=== PATIENT | male | born 1975 | race Hispanic/Latino ===

== ENCOUNTER 2021-10-16 10:32 | Emergency (ER) | payer SELFPAY ==
[2021-10-16 11:12] VITALS: BP 153/98; PULSE 112; RESP 20; TEMP 36.7; O2SAT 100; BMI 28.8
[2021-10-16 11:39] LABS: Add Manual Diff / Slide Review NO; Basophils Absolute Auto 100 /uL (0-100); Basophils Percent Auto 0.8 % (0-2); Eosinophils Absolute Auto 0 /uL (0-450); Eosinophils Percent Auto 0.5 % (2-4); Hematocrit 44.4 % (41-53); Hemoglobin 15.5 g/dL (13.5-17.5); Lymphocytes Absolute Auto 1900 /uL (1100-4500); Lymphocytes Percent Auto 19.3 % (25-40); Mean Corpuscular HGB Conc 34.9 % (30-36); Mean Corpuscular Hemoglobin 31.9 PG (26-34); Mean Corpuscular Volume 91.3 fL (80-100); Monocytes Absolute Auto 700 /uL (0-900); Monocytes Percent Auto 7.4 % (3-14); Neutrophils Absolute Auto 6900 /uL (1500-7000); Platelet Count 321 X10^3/uL (150-400); Red Blood Cell Count 4.86 X10^6/uL (4.5-5.9); Red Cell Distribution Width 12.8 % (11.6-14.8); White Blood Cell Count 9.6 X10^3/uL (4.5-11.0)
[2021-10-16] MEDS: KETOROLAC 30 MG/ML VIAL IV (11:42)
[2021-10-16] MEDS: SODIUM CHLORIDE 0.9% 1,000 ML 1000 ML IV (11:42)
[2021-10-16 11:51] LABS: Alanine Aminotransferase 50 IU/L (<50); Albumin 4.7 g/dL (3.5-5.0); Albumin Globulin Ratio 1.3 (1.0-2.8); Alkaline Phosphatase 100 U/L (38-126); Aspartate Aminotransferase 55 IU/L (17-59); Bilirubin Total 0.3 mg/dL (0.2-1.3); Blood Urea Nitrogen 9 mg/dL (9-20); Calcium 8.9 mg/dL (8.4-10.2); Carbon Dioxide 24 mmol/L (22-32); Chloride 104 mmol/L (98-107); Estimated Glomerular Filt Rate > 60.0 mL/min (>60); Globulin 3.7 g/dL (1.7-4.1); Glucose 106 mg/dL (70-100); HEMOLYSIS < 15 (0-50); Lipase 51 U/L (23-300); Potassium 3.8 mmol/L (3.4-5.1); Sodium 138 mmol/L (137-145); Total Protein 8.4 g/dL (6.3-8.2)
--- NOTE | 2021-10-16 13:43 | DI.CT.S_ITS ---
PROCEDURE: CT ABDOMEN PELVIS W CON INDICATIONS: Abdominal, flank pain TECHNIQUE: After the administration of intravenous contrast, axial sections acquired from the lung bases to the pubic symphysis. Coronal and sagittal reformats were performed. For radiation dose reduction, the following was used: automated exposure control, adjustment of mA and/or kV according to patient size. COMPARISON: None. FINDINGS: Image quality: Good. There is respiratory motion present.. Lung bases: Unremarkable. Heart: No significant findings. ABDOMEN: Liver: Mild steatosis. No focal mass. Gallbladder: Normal wall thickness. Biliary ducts: Nondilated. Pancreas: Normal. Spleen: Normal size. Adrenal Glands: No nodules. Kidneys and Ureters: Normal enhancement. No hydronephrosis or hydroureter. No calcifications. Stomach and Bowel: Stomach, small bowel loops, and colon are unremarkable. Normal appendix. Peritoneum: No abnormal intraperitoneal fluid. No free air. Ventral Wall: Tiny fat containing umbilical hernia. Abdominal Nodes: No retroperitoneal or mesenteric adenopathy by size criteria. Vessels: Aorta and inferior vena cava are normal in size. PELVIS: Pelvic Organs: Unremarkable. Bladder: Unremarkable. Pelvic Nodes: No enlarged lymph nodes. Miscellaneous: No hernias are seen. Bones: Bilateral subcortical sclerosis and cystic changes along both sacroiliac joints, symmetrically. Bridging osteophytosis of the lower thoracic spine vertebral bodies and sclerosis along the lumbar vertebral body corners. IMPRESSION: 1. No acute intraperitoneal process. 2. Bony changes suggesting ankylosing spondylitis with sacroiliitis. 3. Mild hepatic steatosis. Dictated by: Abimbola Curran M.D. on 10/16/2021 at 14:44 Approved by: Abimbola Curran M.D. on 10/16/2021 at 14:49
[2021-10-16] MEDS: MAG HYDROX/ALUMINUM/SIMETH SUS 20 ML, LIDOCAINE VISCOUS 2% 15 ML PO (14:32)
[2021-10-16] MEDS: FAMOTIDINE 20 MG/2 ML VIAL IV (14:32)
[2021-10-16 14:45] VITALS: BP 152/81; PULSE 77; O2SAT 97
--- NOTE | 2021-10-16 15:44 | ED.ABDPAIN ---
HPI - Abdominal Pain <Fox Barrera PA-C - Last Filed: 10/16/21 16:41> General Chief Complaint: Abdominal Pain Stated Complaint: TORSO PAIN/NOT FEELING GOOD Time Seen by Provider: 10/16/21 12:14 Source: patient Mode of arrival: Ambulatory History of Present Illness HPI narrative: 46-year-old male with no reported past medical history presents to the ED with 1 day of right-sided flank pain that radiates to his right abdomen. Patient states he drank 2 energy drinks this morning, after which his pain started. Patient denies fever, chills, chest pain, shortness of breath, cough, nausea, vomiting, diarrhea, constipation, dysuria, lytes anus, syncope. Patient denies prior history of gallstones, kidney stones. Denies history of abdominal surgeries. Related Data Home Medications Medication Instructions Recorded Confirmed No Known Home Medications 10/16/21 10/16/21 Allergies Allergy/AdvReac Type Severity Reaction Status Date / Time No Known Drug Allergies Allergy Verified 10/16/21 11:14 Review of Systems <Fox Barrera PA-C - Last Filed: 10/16/21 16:41> Review of Systems ROS Unobtainable: All systems reviewed & are unremarkable except as noted in HPI and below Constitutional Constitutional: Denies chills, Denies fatigue, Denies fever(s), Denies frequent falls, Denies lethargy and Denies weakness Eyes Eyes: Denies change in vision, Denies eye discharge, Denies irritation and Denies loss of vision ENT Ears, Nose, Mouth, and Throat: Denies change in voice, Denies dizziness, Denies neck pain, Denies sore throat and Denies throat swelling Cardiovascular Cardiovascular: Denies chest pain, Denies irregular heart rhythm, Denies lightheadedness, Denies palpitations, Denies dyspnea, Denies dyspnea on exertion and Denies orthopnea Respiratory Respiratory: Denies cough, Denies dyspnea, Denies dyspnea on exertion and Denies wheezing Gastrointestinal Gastrointestinal: Reports abdominal pain, Denies change in bowel habits, Denies diarrhea, Denies nausea and Denies vomiting Genitourinary Genitourinary: Denies hematuria, Denies flank pain, Denies urinary incontinence and Denies urinary urgency Musculoskeletal Musculoskeletal: Reports back pain, Denies muscle weakness, Denies neck pain, Denies numbness and Denies tingling Comments: Right sided flank pain Integumentary/Breasts Skin/Breast: Denies pruritus, Denies erythema, Denies rash and Denies wounds Neurologic Neurologic: Denies behavioral changes, Denies confusion, Denies dizziness, Denies frequent falls, Denies loss of vision, Denies numbness, Denies tingling and Denies weakness Psychiatric Psychiatric: Denies anxiety, Denies behavioral changes, Denies confusion, Denies depression, Denies homicidal ideation and Denies suicidal ideation Endocrine Endocrine: Denies fatigue, Denies flushing and Denies palpitations Hematologic/Lymphatic Hematologic/Lymphatic: Denies easy bruising Allergic/Immunologic Allergic/Immunologic: Denies urticaria, Denies throat swelling and Denies wheezing Patient History <Fox Barrera PA-C - Last Filed: 10/16/21 16:41> Social History Smoking Status: Never smoker Smoking Status: Never smoker alcohol intake frequency: 0-2 drinks per day Substance Use Type: does not use Exam <Fox Barrera PA-C - Last Filed: 10/16/21 16:41> Initial Vital Signs Initial Vital Signs: Vital Signs Temperature 98.1 F 10/16/21 11:12 Pulse Rate 112 H 10/16/21 11:12 Respiratory Rate 20 10/16/21 11:12 Blood Pressure 153/98 H 10/16/21 11:12 Pulse Oximetry 100 10/16/21 11:12 Const General: cooperative and healthy appearing [facility] Head: normal to inspection Eyes General: appearance normal, both eyes and all related structures Neck Neck: normal visual inspection Chest Chest: normal inspection of the chest Resp Effort & Inspection: normal respiratory effort Auscultation: clear to auscultation bilaterally Cardio Rate: regular rate Rhythm: regular rhythm GI Inspection: normal to inspection Palpation: soft Other: Abdomen is soft, nontender to palpation, nondistended. No CVA tenderness. General: No CVA tenderness Back/Spine/Pelvis Back: normal to inspection Skin General: no rashes or lesions noted Neuro General: patient alert, patient awake and patient oriented x3 <Na Birmingham DO - Last Filed: 10/17/21 13:48> Initial Vital Signs Initial Vital Signs: Vital Signs Temperature 98.1 F 10/16/21 11:12 Pulse Rate 112 H 10/16/21 11:12 Respiratory Rate 20 10/16/21 11:12 Blood Pressure 153/98 H 10/16/21 11:12 Pulse Oximetry 100 10/16/21 11:12 Course <Fox Barrera PA-C - Last Filed: 10/16/21 16:41> Course Course Narrative: Labs, UA, CT abdomen pelvis within no acute findings. On reexamination, abdomen is benign. Patient endorses that his right-sided flank pain feels more muscular in nature. Will give patient Flexeril. Patient's symptoms improved with Flexeril. Discharged patient home with ED return precautions. Patient verbalized understanding. Orders Ordered: Discontinued Medications Al Hydrox/Mg Hydrox/Simethicone 20 ml/ Lidocaine HCl 15 ml 0 ml PO NOW ONE Stop: 10/16/21 13:43 Last Admin: 10/16/21 14:32 Dose: 35 ml Documented by: LASHAY Cyclobenzaprine HCl (Cyclobenzaprine 10 Mg Tablet) 10 mg PO NOW ONE Stop: 10/16/21 15:08 Last Admin: 10/16/21 15:48 Dose: 10 mg Documented by: LASHAY Famotidine (Famotidine 20 Mg/2 Ml Vial) 20 mg IV NOW JUAN MIGUEL Last Admin: 10/16/21 14:32 Dose: 20 mg Documented by: LASHAY Sodium Chloride (Normal Saline 0.9%) 1,000 mls @ 1,000 mls/hr IV BOLUS ONE Stop: 10/16/21 12:15 Last Infusion: 10/16/21 13:00 Dose: 0 mls/hr Documented by: Admin: 10/16/21 11:42 Dose: 1,000 mls/hr Documented by: REYNA Ketorolac Tromethamine (Ketorolac 30 Mg/Ml Vial) 30 mg IV NOW ONE Stop: 10/16/21 11:17 Last Admin: 10/16/21 11:42 Dose: 30 mg Documented by: REYNA Vital Signs Vital signs: Vital Signs - 8 hr 10/16/21 11:12 10/16/21 14:45 Temperature 98.1 F Pulse Rate 112 H 77 Respiratory Rate 20 Blood Pressure 153/98 H 152/81 H Pulse Oximetry 100 97 <Na Birmingham DO - Last Filed: 10/17/21 13:48> Orders Ordered: Discontinued Medications Al Hydrox/Mg Hydrox/Simethicone 20 ml/ Lidocaine HCl 15 ml 0 ml PO NOW ONE Stop: 10/16/21 13:43 Last Admin: 10/16/21 14:32 Dose: 35 ml Documented by: LASHAY Cyclobenzaprine HCl (Cyclobenzaprine 10 Mg Tablet) 10 mg PO NOW ONE Stop: 10/16/21 15:08 Last Admin: 10/16/21 15:48 Dose: 10 mg Documented by: LASHAY Famotidine (Famotidine 20 Mg/2 Ml Vial) 20 mg IV NOW JUAN MIGUEL Last Admin: 10/16/21 14:32 Dose: 20 mg Documented by: LASHAY Sodium Chloride (Normal Saline 0.9%) 1,000 mls @ 1,000 mls/hr IV BOLUS ONE Stop: 10/16/21 12:15 Last Infusion: 10/16/21 13:00 Dose: 0 mls/hr Documented by: Admin: 10/16/21 11:42 Dose: 1,000 mls/hr Documented by: REYNA Ketorolac Tromethamine (Ketorolac 30 Mg/Ml Vial) 30 mg IV NOW ONE Stop: 10/16/21 11:17 Last Admin: 10/16/21 11:42 Dose: 30 mg Documented by: REYNA Vital Signs Vital signs: Vital Signs - 8 hr 10/16/21 11:12 10/16/21 14:45 Temperature 98.1 F Pulse Rate 112 H 77 Respiratory Rate 20 Blood Pressure 153/98 H 152/81 H Pulse Oximetry 100 97 MDM - Abdominal Pain <Fox Barrera PA-C - Last Filed: 10/16/21 16:41> Medical Records Attestation: I reviewed the patient's medical records. Lab Data Attestation: I reviewed the patient's lab results. Lab results narrative: Labs within normal limits Result diagrams: 10/16/21 11:30 10/16/21 11:30 Labs: Lab Results 10/16/21 10/16/21 Range/Units 11:30 11:30 WBC 9.6 (4.5-11.0) X10^3/uL RBC 4.86 (4.5-5.9) X10^6/uL Hgb 15.5 (13.5-17.5) g/dL Hct 44.4 (41-53) % MCV 91.3 (80-100) fL MCH 31.9 (26-34) PG MCHC 34.9 (30-36) % RDW 12.8 (11.6-14.8) % Plt Count 321 (150-400) X10^3/uL Neut % (Auto) 72.0 (50-75) % Lymph % (Auto) 19.3 L (25-40) % [place] % (Auto) 7.4 (3-14) % Eos % (Auto) 0.5 L (2-4) % Baso % (Auto) 0.8 (0-2) % Neut # (Auto) 6900 (2413-8952) /uL Lymph # (Auto) 1900 (6207-1893) /uL [place] # (Auto) 700 (0-900) /uL Eos # (Auto) 0 (0-450) /uL Baso # (Auto) 100 (0-100) /uL Sodium 138 (137-145) mmol/L Potassium 3.8 (3.4-5.1) mmol/L Chloride 104 (98-107) mmol/L Carbon Dioxide 24 (22-32) mmol/L BUN 9 (9-20) mg/dL Creatinine 0.75 (0.66-1.25) mg/dL Estimated GFR > 60.0 (>60) mL/min BUN/Creatinine Ratio 12.0 (6-22) Glucose 106 H (70-100) mg/dL Calcium 8.9 (8.4-10.2) mg/dL Total Bilirubin 0.3 (0.2-1.3) mg/dL AST 55 (17-59) IU/L ALT 50 H (<50) IU/L Alkaline Phosphatase 100 (38-126) U/L Total Protein 8.4 H (6.3-8.2) g/dL Albumin 4.7 (3.5-5.0) g/dL Globulin 3.7 (1.7-4.1) g/dL Albumin/Globulin Ratio 1.3 (1.0-2.8) Lipase 51 (23-300) U/L Point of care testing: Urine Dip Bedside Urine Glucose Negative Bedside Urine Bilirubin - Negative Bedside Urine Ketone - Negative Urine Specific [place] 1.025 Bedside Urine Occult Blood - Negative Bedside Urine pH 6.0 Bedside Urine Protein - Negative Bedside Urine Urobilinogen - Negative Bedside Urine Nitrite - Negative Bedside Urine Leukocytes - Negative Esterase Imaging Data CT scan - abdomen/pelvis: Radiologist's Impression: PROCEDURE:? CT ABDOMEN PELVIS W CON ? INDICATIONS:? Abdominal, flank pain ? TECHNIQUE:? After the administration of intravenous contrast, axial sections acquired from the lung bases to the pubic symphysis.? Coronal and sagittal reformats were performed.? For radiation dose reduction, the following was used:? automated exposure control, adjustment of mA and/or kV according to patient size.? ? COMPARISON:? None. ? FINDINGS:? Image quality:? Good.? There is respiratory motion present..? ? Lung bases:? Unremarkable. Heart:? No significant findings. ? ABDOMEN: Liver:? Mild steatosis.? No focal mass. Gallbladder:? Normal wall thickness. Biliary ducts:? Nondilated. Pancreas:? Normal. Spleen:? Normal size. Adrenal Glands:? No nodules. Kidneys and Ureters:? Normal enhancement.? No hydronephrosis or hydroureter.? No calcifications. ? Stomach and Bowel:? Stomach, small bowel loops, and colon are unremarkable.? Normal appendix. Peritoneum:? No abnormal intraperitoneal fluid.? No free air.? ? Ventral Wall: ? Tiny fat containing umbilical hernia.? Abdominal Nodes:? No retroperitoneal or mesenteric adenopathy by size criteria.? Vessels:? Aorta and inferior vena cava are normal in size.? ? PELVIS: Pelvic Organs:? Unremarkable.? ? Bladder:? Unremarkable.? ? Pelvic Nodes: No enlarged lymph nodes.? Miscellaneous: No hernias are seen. ? ? ? Bones:? Bilateral subcortical sclerosis and cystic changes along both sacroiliac joints, symmetrically.? Bridging osteophytosis of the lower thoracic spine vertebral bodies and sclerosis along the lumbar vertebral body corners. ? ? IMPRESSION:? 1. No acute intraperitoneal process. 2. Bony changes suggesting ankylosing spondylitis with sacroiliitis. 3. Mild hepatic steatosis. ? ? ? Dictated by: Abimbola Curran M.D. on 10/16/2021 at 14:44 ? ? Approved by: Abimbola Curran M.D. on 10/16/2021 at 14:49 ? MDM Narrative Medical decision making narrative: 46-year-old male with no reported past medical history presents to the ED with 1 day of right-sided flank pain that radiates to his left abdomen. Concern for kidney stones versus UTI versus musculoskeletal pain. Will order labs, lipase, CT abdomen pelvis. Will treat symptoms with Toradol, GI cocktail, IV fluids, Pepcid. Will re-assess. <Na Carmenjorge, DO - Last Filed: 10/17/21 13:48> Lab Data Labs: Lab Results 10/16/21 10/16/21 Range/Units 11:30 11:30 WBC 9.6 (4.5-11.0) X10^3/uL RBC 4.86 (4.5-5.9) X10^6/uL Hgb 15.5 (13.5-17.5) g/dL Hct 44.4 (41-53) % MCV 91.3 (80-100) fL MCH 31.9 (26-34) PG MCHC 34.9 (30-36) % RDW 12.8 (11.6-14.8) % Plt Count 321 (150-400) X10^3/uL Neut % (Auto) 72.0 (50-75) % Lymph % (Auto) 19.3 L (25-40) % [place] % (Auto) 7.4 (3-14) % Eos % (Auto) 0.5 L (2-4) % Baso % (Auto) 0.8 (0-2) % Neut # (Auto) 6900 (1618-9019) /uL Lymph # (Auto) 1900 (3559-1655) /uL [place] # (Auto) 700 (0-900) /uL Eos # (Auto) 0 (0-450) /uL Baso # (Auto) 100 (0-100) /uL Sodium 138 (137-145) mmol/L Potassium 3.8 (3.4-5.1) mmol/L Chloride 104 (98-107) mmol/L Carbon Dioxide 24 (22-32) mmol/L BUN 9 (9-20) mg/dL Creatinine 0.75 (0.66-1.25) mg/dL Estimated GFR > 60.0 (>60) mL/min BUN/Creatinine Ratio 12.0 (6-22) Glucose 106 H (70-100) mg/dL Calcium 8.9 (8.4-10.2) mg/dL Total Bilirubin 0.3 (0.2-1.3) mg/dL AST 55 (17-59) IU/L ALT 50 H (<50) IU/L Alkaline Phosphatase 100 (38-126) U/L Total Protein 8.4 H (6.3-8.2) g/dL Albumin 4.7 (3.5-5.0) g/dL Globulin 3.7 (1.7-4.1) g/dL Albumin/Globulin Ratio 1.3 (1.0-2.8) Lipase 51 (23-300) U/L Point of care testing: Urine Dip Bedside Urine Glucose Negative Bedside Urine Bilirubin - Negative Bedside Urine Ketone - Negative Urine Specific [place] 1.025 Bedside Urine Occult Blood - Negative Bedside Urine pH 6.0 Bedside Urine Protein - Negative Bedside Urine Urobilinogen - Negative Bedside Urine Nitrite - Negative Bedside Urine Leukocytes - Negative Esterase Discharge Plan Departure Patient Disposition: Home Clinical Impression: Abdominal pain Instructions: DI for Abdominal Pain-Adult Activity Restrictions/Additional Instructions: You were evaluated in the ED today for abdominal pain and back pain. Your labs and CT abdomen pelvis was normal. Your symptoms improved with Toradol and Flexeril. Your symptoms are likely due to a musculoskeletal sprain/strain. You may take Tylenol and ibuprofen for your symptoms. Please return to the ED if you have worsening symptoms, fever, chills. Prescriptions: No Action No Known Home Medications 0RF <Na Birmingham DO - Last Filed: 10/17/21 13:48> Cosign ED Attending [place] Attestation: I was immediately available in the department for consultation. Documentation has been reviewed.
[2021-10-16] MEDS: CYCLOBENZAPRINE 10 MG TABLET PO (15:48)
[2021-10-16 16:56] VITALS: BP 152/81; PULSE 88; RESP 18; TEMP 36.7; O2SAT 98
== END 2021-10-16 16:59 | disposition home or self-care (01) ==
PROVIDERS: Emergency Medicine; Emergency Provider Student in an Organized Health Care Education/Training Program
DX: R10.9 Unspecified abdominal pain (principal)
CPT/HCPCS: 36415; 74177; 80053; 81003; 83690; 85025; 96361; 96374; 96375; 99284; J1885; Q9967